=== PATIENT | female | born 2005 | race African-American/Black ===

== ENCOUNTER 2024-01-24 08:02 | Emergency (ER) | payer OTHER ==
[~2024-01-24] VITALS: Ht 205.7 cm; Wt 68.2 kg
[2024-01-24] MEDS ORDERED: CEPH500C PO (09:45)
[2024-01-24 09:50] VITALS: BP 117/68; PULSE 80; RESP 18; TEMP 98.7; O2SAT 100
== END 2024-01-24 10:01 | disposition home or self-care (01) ==
LOC: ER 08:02
DX: T16.2XXA Foreign body in left ear, initial encounter (principal); W44.D4XA Magnetic metal jewelry entering into or through a natural orifice, initial encounter; Y93.89 Activity, other specified; Y92.89 Other specified places as the place of occurrence of the external cause; Y99.8 Other external cause status